=== PATIENT | female | born 1945 | race Caucasian/White ===

== ENCOUNTER 2019-10-03 22:54 | Emergency (ER) | payer MEDICARE ==
[2019-10-03 23:23] LABS: #Basophils 0.1 thou/uL (0.0-0.2); #Lymphocytes 2.1 thou/uL (1.20-3.40); #Monocytes 0.7 thou/uL (0.11-0.59); #Neutrophils 3.2 thou/uL (1.40-6.50); %Basophils 1.4 % (0.0-1.0); %Eosinophils 0.8 % (0.0-10.0); %Lymphocytes 34.1 % (21.0-51.0); %Monocytes 10.9 % (0.0-10.0); %Neutrophils 52.8 % (42.0-75.0); Hemoglobin 13.2 g/dL (12.0-16.0); Mean Corpuscular HGB CONC 32.6 g/dL (32.0-36.0); Mean Corpuscular Hemoglobin 28.6 pg (27.0-31.0); Mean Corpuscular Volume 87.7 fL (78.0-98.0); Mean Platelet Volume 6.3 fL (7.4-10.4); Platelet Count 269 thou/uL (130-400); RBC Distribution Width 12.4 % (11.5-14.5); Red Blood Cell (RBC) Count 4.59 mill/uL (4.20-5.40)
[2019-10-03] MEDS ORDERED: Milk Of Magnesia 30 ML UDCUP ONE (23:31)
[2019-10-03] MEDS ORDERED: Lidocaine Viscous Sol 2% 15 ml UD Cup ONE (23:31)
--- NOTE | 2019-10-03 23:34 | RAD ---
RADIOGRAPH CHEST 1 VIEW: DATE: 10/03/2019 HISTORY: 74-year-old female with epigastric pain. FINDINGS: There are no airspace densities, pulmonary edema, pneumothorax, or cardiomegaly. The lateral costophr enic angles are sharp. No pneumoperitoneum. Array of ngozi across left upper quadrant of abdomen and at midline. IMPRESSION: 1. No acute cardiopulmonary findings. 2. Evidence for previous left upper quadrant abdominal surgery.
[2019-10-03 23:40] LABS: ALT (SGPT) 15 U/L (8-55); AST (SGOT) 15 U/L (5-34); Albumin 4.1 g/dL (3.4-4.8); Alkaline Phosphatase 117 U/L (40-110); Anion Gap 13 mmol/L (10-20); BUN (Urea Nitrogen) 12 mg/dL (9.8-20.1); Bilirubin, Total 0.3 mg/dL (0.2-1.2); Calc. Creatinine Clearance 0 mL/min (70-130); Calcium 9.6 mg/dL (7.8-10.44); Carbon Dioxide 25 mmol/L (23-31); Chloride 100 mmol/L (98-107); Estimated GFR-MDRD 82; Globulin 2.8 g/dL (2.4-3.5); Glucose 102 mg/dL (83-110); Lipase 52 U/L (8-78); Potassium 4.2 mmol/L (3.5-5.1); Protein, Total 6.9 g/dL (6.0-8.3); Sodium 134 mmol/L (136-145)
--- NOTE | 2019-10-04 08:12 | ULT ---
PRELIMINARY REPORT/[facility]/EMERGENCY AFTER HOURS PROCEDURE: PROCEDURE INFORMATION: Exam: US Abdomen Limited, Right Upper Quadrant Exam date and time: 10/04/2019 12:08 AM Age: 74 years old Clinical history: Other: Ml to ruq pain; Prior surgery; Surgery date: 6+ months; Surgery type: Gb rem jay TECHNIQUE: Imaging protocol: Real-time ultrasound of the abdomen with image documentation. Examination was focu sed on the right upper quadrant. COMPARISON: No relevant prior studies available. FINDINGS: Liver: Normal. No masses. Gallbladder: Prior cholecystectomy. Common bile duct: Common bile duct measures 7 mm in caliber which is at the upper limits of normal for a patient this age who is post cholecystectomy. Pancreas: Visualized pancreas is unremarkable. Right kidney: Normal. No mass. No hydronephrosis. IMPRESSION: No acute findings. Thank you for allowing us to participate in the care of your patient. Dictated and Authenticated by: Hardeep Cervantes MD 10/04/2019 12:41 AM Central Time ([place] & [place]) FINAL REPORT I agree with the preliminary report provided. No acute abnormality is evident. The patient has postprocedural changes of prior cholecystectomy. T he common bile duct measures 7 mm, likely related to patient's post cholecystectomy state. POS:
== END 2019-10-04 00:51 | disposition home or self-care (01) ==
LOC: SCSER 22:54
DX: R10.11 Right upper quadrant pain (principal); I10 Essential (primary) hypertension; E03.9 Hypothyroidism, unspecified; F31.9 Bipolar disorder, unspecified; M19.90 Unspecified osteoarthritis, unspecified site; Z79.899 Other long term (current) drug therapy; Z87.891 Personal history of nicotine dependence
CPT/HCPCS: 71045; 76705; 80053; 83690; 84484; 85025

== ENCOUNTER 2020-10-21 07:54 | Outpatient (CLI) | payer MEDICARE ==
--- NOTE | 2020-10-21 08:35 | ULT ---
Exam: Abdomen ultrasound HISTORY: Screening study for aneurysm COMPARISON: None TECHNIQUE: Grayscale, color flow, Doppler imaging and spectral wave form analysis of the aorta FINDINGS: There is patency in the visualized aorta Proximal aorta: 2.2 x 1.8 x 1.8 cm Mid aorta: 1.6 x 1.7 x 1.5 cm Distal aorta: 1.4 x 1.4 cm IMPRESSION: No evidence of aneurysm.
--- NOTE | 2020-10-21 08:38 | MMO ---
Bilateral MAMMO Bilat Screen [facility]. CLINICAL HISTORY: Patient is 75 years old and is seen for screening. The patient has no family history of breast cancer. The patient has no personal history of cancer. The patient has a history of bilateral Implants in 2001. VIEWS: The views performed were: bilateral craniocaudal with tomosynthesis and bilateral mediolateral oblique with tomosynthesis. FILMS COMPARED: The present examination has been compared to a prior imaging study performed at [facility] on 06/29/2009. This study has been interpreted with the assistance of computer-aided detection. MAMMOGRAM FINDINGS: There are scattered fibroglandular densities. There are stable benign appearing calcifications seen in both breasts. There are no suspicious masses, suspicious calcifications, or new areas of architectural distortion. IMPRESSION: THERE IS NO MAMMOGRAPHIC EVIDENCE OF MALIGNANCY. A ROUTINE FOLLOW-UP MAMMOGRAM IN 1 YEAR IS RECOMMENDED. THE RESULTS OF THIS EXAM WERE SENT TO THE PATIENT. ACR BI-RADS Category 2 - Benign finding MAMMOGRAPHY NOTE: 1. A negative mammogram report should not delay a biopsy if a dominant of clinically suspicious mass is present. 2. Approximately 10% to 15% of breast cancers are not detected by mammography. 3. Adenosis and dense breasts may obscure an underlying neoplasm. Reported by: CASEY DEJESUS MD Electonically Signed: [id number]
--- NOTE | 2020-10-21 09:17 | CT ---
EXAM: CT Pulmonary Lung Scan PROVIDED CLINICAL HISTORY: Personal history of tobacco use/nicotine dependence. Initial baseline low-dose lung CT screening eval uation. COMPARISON: CT angiogram thorax on 10/24/2019 FINDINGS: There is symmetric biapical pleural and parenchymal scarring similar to the prior study. Irregular li near densities seen at the medial aspect of the right upper lobe also present on the prior exam and could potentially represent an area of scarring. Small pulmonary nodule measuring 3 mm is seen in the anterolateral aspect of the right upper lobe (image 46, series 3). Small pulmonary nodule measuring 4 mm is seen in the right upper lobe (image 73, series 3). Approximately 3 mm pulmonary nod ule is seen in the posterolateral right lower lobe (image 69, series 3). No definite additional discrete pulmonary nodule is seen. The pulmonary nodules cannot be confirmed on prior study due to pr ominent motion artifact. There is no mass or pleural effusion identified. Linear densities are seen at the left lung base and in the right middle lobe and lingula likely due t o atelectasis and/or minimal scarring. Lack of intravenous contrast limits evaluation of the mediastinal structures and vasculature. Vascula r calcifications are again seen in the thoracic aorta and involving the coronary arteries. No definite enlarged lymph nodes are seen by CT size criteria. The heart is at the upper limits of kelton l in size. Bilateral breast prostheses are seen. There findings involving the right breast implant which are wor risome for intracapsular rupture, but MRI is needed for confirmation of this finding. Postcholecystectomy changes are noted. There are multiple surgical clips in the anterior abdominal wa ll in the midline into the left of midline in the left upper quadrant. There are calcifications seen in a linear fashion in region of the body of the stomach in addition to what appears to be an ad jacent surgical clip. Findings likely due to postoperative changes of the stomach also noted on prior exam. Vascular calcifications are seen in the abdominal aorta. No suspicious lytic or sclerotic osseous lesions are identified. There is mild right convex curvature of the thoracic spine. IMPRESSION: 1. Lung RADS category 2-small pulmonary nodules right lung. Continued annual screening with low-dose CT thorax in 12 months is recommended. 2. Category S-multiple curvilinear densities in the right breast implant which may be secondary to in tracapsular rupture. However, MRI of the breasts would be needed for confirmation of this finding.
== END 2020-10-21 07:55 | disposition home or self-care (01) ==
LOC: BICMAMMO 07:54
PROVIDERS: ATTEND Internal Medicine
DX: Z12.31 Encounter for screening mammogram for malignant neoplasm of breast (principal); Z12.2 Encounter for screening for malignant neoplasm of respiratory organs; Z13.6 Encounter for screening for cardiovascular disorders; Z87.891 Personal history of nicotine dependence; N64.89 Other specified disorders of breast; R91.1 Solitary pulmonary nodule; Z98.82 Breast implant status
CPT/HCPCS: 76775; 77063; 77067; G0297